=== PATIENT | female | born 1965 | race Caucasian/White ===

== ENCOUNTER 2018-02-08 06:14 | Day surgery (SDC) | payer BC, OTHER ==
[~2018-02-08 06:14] MED LIST: Dextrose 5%-0.45% NaCl 1,000 ML IV SCH; Midazolam 1 MG/ML 2 ML SDV ONE; Sodium Chloride 0.9% 10 ML Syringe FLUSH PRN; fentaNYL 100 MCG/2 ML SDV ONE
[2018-02-08] MEDS ORDERED: Midazolam 1 MG/ML 2 ML SDV IV ONE ×7 (06:15→07:45)
[2018-02-08] MEDS ORDERED: fentaNYL 100 MCG/2 ML SDV IV ONE ×4 (06:15→07:47)
[2018-02-08] MEDS ORDERED: Dextrose 5%-0.45% NaCl 1,000 ML IV SCH (07:00)
--- NOTE | 2018-02-08 08:55 | OR ---
DATE: 02/08/2018 PROCEDURES PERFORMED: Total colonoscopy, NBI, multiple cold snare polypectomies, and multiple pinch biopsies. INSTRUMENT USED: CF-H180AL Olympus videocolonoscope. PREMEDICATIONS: Fentanyl 125 mcg intravenous and Versed 4 mg intravenous. Nasal O2 cannula. The procedure was done under pulse oximetry, BP recording, and wirer. INDICATION: The patient with chronic constipation and recent alteration in bowel habits with intermittent diarrhea. Colonoscopic examination is done for detection of any polypoid lesions and removal, endoscopic hemostasis therapy if needed. DESCRIPTION OF PROCEDURE: Initial rectal exam was unremarkable. Rigid anoscopy was normal. The colonoscope was passed with ease. Few scattered diverticula were noted in the distal left colon. The scope was passed with ease up to the ileocecal area, photographs were taken of the cecum identified by landmarks of appendiceal orifice and double-bulged ileocecal folds. A 3 mm sized benign- appearing polyp was noted in the ileocecal fold, NBI views were obtained, photographs were taken, cold snare polypectomy was done, the tissue was retrieved and sent for histopathology. Multiple pinch biopsies were taken from the prominent benign-appearing ileocecal fold and sent for histopathology. No bleeding was noted from any of the visualized areas at the commencement of the examination. The bowel preparation was found to be adequate. No stricture. No vascular ectasia. No large isolated ulcerations seen. No evidence of diffuse inflammatory bowel disease in the form of friability, contact bleeding, or ulcerations. Probing the proximal sides of folds and flexures, using adequate distention and clearing of the stool material, withdrawal of the scope was made. In the mid-sigmoid colon, a 3 mm sized benign-appearing polyp was noted, NBI views were obtained, photographs were taken, cold snare polypectomy was done, the tissue was retrieved and sent for histopathology. No bleeding was noted from any of the visualized areas at the completion of the examination. IMPRESSION: 1. Diverticulosis. 2. Multiple colonic polyps. The patient tolerated the procedure well. [facility] /[id number]
--- NOTE | 2018-02-08 09:04 | LETTER ---
02/08/2018 Makenzie Becerra NP [facility] [address], [place] [id number] RE: QING UGARTE : 1965 Dear Ms. Becerra: Ms. Qing Ugarte had colonoscopic examination done this morning and she tolerated the procedure well. I herewith send a copy of the endoscopy note and photographs for your review. She is put on Citrucel 1 tablespoonful p.o. daily, response to be noted. Thank you. Sincerely, [facility] /[id number]
== END 2018-02-08 10:08 | disposition home or self-care (01) ==
LOC: DL.ENDO 06:14
PROVIDERS: ATTEND Internal Medicine Gastroenterology
DX: K59.09 Other constipation (principal); D12.0 Benign neoplasm of cecum; K63.5 Polyp of colon; K57.30 Diverticulosis of large intestine without perforation or abscess without bleeding; E66.09 Other obesity due to excess calories; R19.7 Diarrhea, unspecified; F41.1 Generalized anxiety disorder; Z88.2 Allergy status to sulfonamides
CPT/HCPCS: 45380; 45385; J2250; J3010; J7042

== ENCOUNTER 2022-07-15 15:15 | Inpatient (IN) | payer OTHER ==
[2022-07-15] MEDS ORDERED: Sodium Chloride 0.9% 10 ML Syringe FLUSH PRN (15:25)
[2022-07-15] MEDS ORDERED: Sodium Chloride 0.9% 1,000 ML IV ONE ×2 (16:16→17:29)
[2022-07-15 16:18] LABS: CORONAVIRUS COVID-19 NAA NEGATIVE (NEGATIVE)
[2022-07-15 16:36] LABS: ANION GAP 11.8 mEq/L (7-13); CHLORIDE,CL 102 mmol/L (98-107); SODIUM,NA 139 mmol/L (136-145)
[2022-07-15 16:39] LABS: ESTIMATED GFR 102 mL/min (>=60)
[2022-07-15] MEDS ORDERED: Iopamidol 755 Mg/ML 100 ML Bottle IVPUSH ONE (16:45)
[2022-07-15 16:50] LABS: PTT,PARTIAL THROMBOPLSTIN TIME 24.7 SEC (22.0-34.0)
[2022-07-15] MEDS ORDERED: Heparin Sodium 5,000 Units/ML Vial IVPUSH ONE (17:18)
[2022-07-15] MEDS: Heparin Sodium/0.45% NaCl 25,000 UNITS/500 ML BAG IV SCH (17:26)
[2022-07-15] MEDS ORDERED: Zolpidem 5 MG Tab PO PRN (20:10)
[2022-07-15] MEDS ORDERED: Magnesium Hydroxide 400 MG/5 ML Susp 30 ML Cup PO PRN (20:10)
[2022-07-15] MEDS ORDERED: HYDROmorphone 0.5 MG/0.5 ML Syringe IVPUSH PRN (20:10)
[2022-07-15] MEDS ORDERED: Polyethylene Glycol 3350 Powder 17 GM Packet PO PRN (20:10)
[2022-07-15] MEDS ORDERED: Albuterol/Ipratropium 3.0-0.5 MG/3 ML Neb Soln NEB PRN (20:10)
[2022-07-15] MEDS ORDERED: Ondansetron 4 MG/2 ML SDV IVPUSH PRN (20:10)
[2022-07-15] MEDS ORDERED: diphenhydrAMINE 25 MG Tab PO PRN ×2 (20:12→20:58)
[2022-07-15] MEDS: Acetaminophen/HYDROcodone 325-5 MG Tab PO PRN (22:14)
[2022-07-16] MEDS: Acetaminophen/HYDROcodone 325-5 MG Tab PO PRN ×2 (02:25→08:25)
[2022-07-16] MEDS: Acetaminophen 325 MG Tab PO PRN ×2 (02:26→08:24)
[2022-07-16] MEDS: Furosemide 40 MG Tab PO SCH (08:24)
[2022-07-16] MEDS: Heparin Sodium/0.45% NaCl 25,000 UNITS/500 ML BAG IV SCH (08:32)
[2022-07-16] MEDS ORDERED: oxyCODONE 5 MG Tab PO PRN (09:26)
[2022-07-16] MEDS ORDERED: predniSONE 20 MG Tab PO ONE (09:27)
[2022-07-16] MEDS: Acetaminophen/Butalbital/Caffeine 325-50-40 MG Tab PO PRN ×3 (11:33→21:29)
[2022-07-16] MEDS ORDERED: CALCIPOTRIENE TOP PRN (16:17)
[2022-07-16] MEDS ORDERED: Morphine 2 MG/ML SYRINGE IVPUSH ONE (17:13)
[2022-07-16] MEDS ORDERED: Famotidine 20 MG/2 ML SDV IVPUSH ONE (17:14)
[2022-07-16] MEDS ORDERED: Temazepam 15 MG Cap PO PRN (19:42)
[2022-07-16] MEDS ORDERED: diphenhydrAMINE 50 MG/ML SDV IVPUSH ONE (19:43)
[2022-07-16] MEDS: Acetaminophen/HYDROcodone 325-10 MG Tab PO PRN (23:40)
[2022-07-17 07:22] LABS: ANION GAP 12.7 mEq/L (7-13)
[2022-07-17] MEDS: Acetaminophen/HYDROcodone 325-10 MG Tab PO PRN (07:23)
[2022-07-17] MEDS ORDERED: predniSONE 20 MG Tab PO SCH ×2 (08:00)
[2022-07-17] MEDS: Furosemide 40 MG Tab PO SCH (08:30)
[2022-07-17] MEDS ORDERED: Apixaban 5 MG Tab PO SCH (09:00)
[2022-07-17] MEDS ORDERED: Ferrous Sulfate 325 MG Tab PO SCH (09:00)
== END 2022-07-17 16:35 | disposition home or self-care (01) | DRG 176 ==
LOC: DL.ED 15:15 → DL.MS 17:54
PROVIDERS: ADMIT Internal Medicine; ATTEND Internal Medicine
DX: I26.99 Other pulmonary embolism without acute cor pulmonale (principal); J90 Pleural effusion, not elsewhere classified; C34.90 Malignant neoplasm of unspecified part of unspecified bronchus or lung; M54.89 Other dorsalgia; E78.5 Hyperlipidemia, unspecified; F41.9 Anxiety disorder, unspecified; F32.A Depression, unspecified; D64.9 Anemia, unspecified; R51.9 Headache, unspecified; K21.9 Gastro-esophageal reflux disease without esophagitis; E66.9 Obesity, unspecified; R59.1 Generalized enlarged lymph nodes; M85.80 Other specified disorders of bone density and structure, unspecified site; Z20.822 Contact with and (suspected) exposure to COVID-19; Z96.643 Presence of artificial hip joint, bilateral; Z68.35 Body mass index [BMI] 35.0-35.9, adult; Z88.2 Allergy status to sulfonamides; Z88.8 Allergy status to other drugs, medicaments and biological substances; Z88.1 Allergy status to other antibiotic agents; Z91.010 Allergy to peanuts; Z98.51 Tubal ligation status; Z79.899 Other long term (current) drug therapy
CPT/HCPCS: 0240U; 36415; 70450; 71045; 71260; 80048; 80053; 83605; 83735; 83880; 84145; 84484; 85025; 85379; 85610; 85651; 85730; 86140; 93005; 93010; 93306; 93970; 94010; 99223; 99232; 99238; A9270-GY; J1200; J1644; J2270; J3490; J7030; J7512